=== PATIENT | female | born 1930 | race Caucasian/White ===

== ENCOUNTER → 2016-07-20 | Outpatient (CLI) | payer MEDICARE, BC ==
[~2016-07-20] MED LIST: AMLODIPINE BESYL5 MG PO; ASPIRIN81 M1 PO; ATENOLOL50 MG PO; FOSAMAX70 MG PO; HYDROCODON-ACE1 EACH PO; LORTAB 10-5001 EACH PO; NORCO 5/325 TAB1 TAB PO; PRAVASTATIN SOD40 MG PO; PRAVASTATIN SOD80 MG PO; TENORMIN50 MG PO; VITAMIN D400 UNI1 PO; VITAMIN D50000 UNIT PO; ZOFRAN ODT4 MG PO
== END | disposition home or self-care (01) ==
LOC: CECH 12:49
DX: I51.7 Cardiomegaly (principal)
CPT/HCPCS: 93306